=== PATIENT | female | born 1950 | race Caucasian/White ===

== ENCOUNTER 2022-04-15 19:32 | Emergency (ER) | payer MEDICARE ==
[~2022-04-15] VITALS: Ht 165.1 cm; Wt 72.7 kg
[2022-04-15 19:51] VITALS: BP 143/73
[2022-04-15 20:00] VITALS: BP 151/71
[2022-04-15 20:15] VITALS: BP 146/71
[2022-04-15] MEDS ORDERED: AMOXICILLIN500 MG PO (20:26)
[2022-04-15 20:30] VITALS: BP 139/82
[2022-04-15 20:45] VITALS: BP 149/75
== END 2022-04-15 20:54 | disposition home or self-care (01) ==
LOC: ED 19:32
DX: J01.90 Acute sinusitis, unspecified (principal); I10 Essential (primary) hypertension